=== PATIENT | female | born 1935 | race Caucasian/White ===

== ENCOUNTER 2023-10-16 19:35 | Emergency (ER) | payer OTHER ==
[~2023-10-16] VITALS: Ht 170.1 cm; Wt 99.8 kg
[2023-10-16 19:56] LABS: BASO # 0.1 10*3/uL (0.0-0.1); BASO % 0.8 % (0.0-1.0); EOS # 0.3 10*3/uL (0.0-0.4); HEMATOCRIT 40.8 % (37.0-47.0); LYMPH # 2.1 10*3/uL (1.3-4.4); LYMPH % 22.1 % (27.0-41.0); MEAN CELL VOLUME 92.1 fl (81.0-99.0); MEAN CORPUSCULAR HGB 29.1 pg (27.0-31.0); MEAN CORPUSCULAR HGB CONC 31.6 g/dl (33.0-37.0); MEAN PLATELET VOLUME 12.5 fl (9.6-12.3); MONO # 0.9 10*3/uL (0.1-1.0); MONO % 9.2 % (3.0-9.0); NEUT % 64.6 % (47.0-73.0); PLATELET COUNT AUTOMATED 188 10*3/uL (130-400); RED BLOOD COUNT 4.43 10*6/uL (4.10-5.10); RED CELL DISTRI WIDTH 14.1 % (0-14.5); WHITE BLOOD COUNT 9.3 10*3/uL (4.8-10.8)
[2023-10-16 20:13] LABS: ACT PARTIAL THROMBO TIME 33.4 SECONDS (20.0-32.1)
[2023-10-16 20:20] LABS: ALKALINE PHOSPHATASE 62 U/L (46-116); BUN 13 mg/dl (9-23); CHLORIDE 102 mmol/L (98-107); LIPASE 30 U/L (12-53); POTASSIUM 3.3 mmol/L (3.4-5.1); SGPT/ALT 14 U/L (5-49); TOTAL PROTEIN 7.2 gm/dL (6.0-8.0)
[2023-10-16 21:40] LABS: BILIRUBIN Negative (Negative); BLOOD Negative (Negative); CLARITY Clear (Clear); COLOR Yellow (Yellow); GLUCOSE Negative (Negative); KETONE Negative (Negative); LEUKO ESTERASE 1+ (Negative); NITRITE Negative (Negative); PH 6.5 (4.5-8.0); SPECIFIC GRAVITY <= 1.005 (1.001-1.030); UROBILINOGEN 0.2 E.U./dl (0.0-1.0)
[2023-10-16 21:49] LABS: BACTERIA 2+
[2023-10-16] MEDS ORDERED: CIPRO500 MG PO (23:06)
[2023-10-16] MEDS ORDERED: VISTARIL25 MG PO (23:06)
== END 2023-10-16 23:31 ==
LOC: ED 19:35
PROVIDERS: Internal Medicine
DX: N39.0 Urinary tract infection, site not specified (principal); F41.9 Anxiety disorder, unspecified; I10 Essential (primary) hypertension; E11.9 Type 2 diabetes mellitus without complications; E78.5 Hyperlipidemia, unspecified; R10.2 Pelvic and perineal pain

== ENCOUNTER 2024-07-03 02:22 | Emergency (ER) | payer MEDICARE ==
[~2024-07-03 02:22] MED LIST: CIPRO500 MG PO; VISTARIL25 MG PO
[2024-07-03] MEDS ORDERED: cloNIDine Hydrochloride 0.1 MG TAB PO ONE (02:35)
== END 2024-07-03 05:49 ==
LOC: ED 02:22
DX: S60.222A Contusion of left hand, initial encounter (principal); S50.812A Abrasion of left forearm, initial encounter; I10 Essential (primary) hypertension; Z79.899 Other long term (current) drug therapy; Z79.2 Long term (current) use of antibiotics; E66.9 Obesity, unspecified; Z68.30 Body mass index [BMI] 30.0-30.9, adult; W07.XXXA Fall from chair, initial encounter; Y93.89 Activity, other specified; Y92.89 Other specified places as the place of occurrence of the external cause; Y99.8 Other external cause status

== ENCOUNTER 2025-02-11 05:48 | Emergency (ER) | payer MEDICARE ==
[~2025-02-11] VITALS: Wt 112.9 kg
[~2025-02-11 05:48] MED LIST changes: +ADMELOG100 UNIT/1 SQ; +CARVEDILOL6.25 MG PO; +CEPHALEXIN500 M1 PO; +CYMBALTA60 MG PO; +DILTIAZEM HCL120 M1 PO; +ELIQUIS5 M1 PO; +EXEL13.31 T; +LANTUS100 UNIT/1 SC; +LASIX20 MG PO; +LIPITOR10 MG PO; +MEMANTINE HCL10 MG PO; +METFORMIN HYDR500 MG PO; +NEURONTIN100 MG PO; +Nystatin Cream15 GM T; +SEPTDS PO; +TRAMADOL HCL50 MG PO; +VITAMIN B12500 MC2 PO; +VITAMIN D31250 MC1 PO
== END 2025-02-11 08:00 | disposition home or self-care (01) ==
LOC: ED 05:48
DX: M25.551 Pain in right hip (principal); I10 Essential (primary) hypertension; Z79.899 Other long term (current) drug therapy; Z90.49 Acquired absence of other specified parts of digestive tract; Z90.89 Acquired absence of other organs; Z98.890 Other specified postprocedural states; W05.0XXA Fall from non-moving wheelchair, initial encounter; Y93.89 Activity, other specified; Y92.89 Other specified places as the place of occurrence of the external cause; Y99.8 Other external cause status